=== PATIENT | male | born 1940 | race Caucasian/White ===

== ENCOUNTER → 2017-06-05 | Outpatient (CLI) | payer MEDICARE | END | disposition home or self-care (01) | LOC: CFH 10:13 | PROVIDERS: ATTEND Physician Assistant | DX: M47.892 Other spondylosis, cervical region (principal); M50.21 Other cervical disc displacement, high cervical region; M47.894 Other spondylosis, thoracic region; M85.88 Other specified disorders of bone density and structure, other site; M25.78 Osteophyte, vertebrae; M48.02 Spinal stenosis, cervical region | CPT/HCPCS: 72050; 72072; 72125 ==

== ENCOUNTER 2018-12-07 16:06 | Emergency (ER) | payer MEDICARE ==
[~2018-12-07] VITALS: Ht 177.8 cm; Wt 104.0 kg
[2018-12-07 16:43] LABS: BASOPHILS # (AUTO) 0.08 x10^3/uL (0-0.1); BASOPHILS % (AUTO) 1 % (0-1); EOSINOPHILS # (AUTO) 0.19 x10^3/uL (0-0.4); EOSINOPHILS % (AUTO) 3 % (1-7); LYMPHOCYTES # (AUTO) 1.25 x10^3/uL (1-3.4); LYMPHOCYTES % (AUTO) 19 % (22-44); MD NO; MEAN CORPUSCULAR HEMOGLOBIN 31.2 pg (27.5-34.5); MEAN CORPUSCULAR HGB CONC 33.7 g/dL (33.2-36.2); MEAN CORPUSCULAR VOLUME 92.7 fL (81-97); MEAN PLATELET VOLUME 8.3 fL (7.4-10.4); MONOCYTES # (AUTO) 0.67 x10^3/uL (0.2-0.8); MONOCYTES % (AUTO) 10 % (2-9); NEUTROPHILS % (AUTO) 67 % (42-75); PLATELET COUNT 212 x10^3/uL (130-400); RED BLOOD COUNT 5.25 x10^6/uL (4.38-5.82); RED CELL DISTRIBUTION WIDTH 14.3 % (9.4-14.8)
[2018-12-07 16:52] LABS: ALBUMIN 4.2 g/dL (3.4-5.0); ANION GAP 7 mmol/L (5-15); CALCIUM 8.9 mg/dL (8.5-10.1); CHLORIDE 106 mmol/L (98-107); CREATININE 1.43 mg/dL (0.7-1.3)
[2018-12-07] MEDS ORDERED: LOSA100T14 PO (17:07)
[2018-12-07] MEDS ORDERED: AMLO10TA8 PO (17:07)
[2018-12-07] MEDS ORDERED: UMEC1DIS IH (17:07)
[2018-12-07] MEDS ORDERED: SERT50TA28 PO (17:07)
[2018-12-07] MEDS ORDERED: OMEP-110 PO (17:07)
[2018-12-07] MEDS ORDERED: TRAM50TA2 PO (17:07)
[2018-12-07] MEDS ORDERED: DICL25TA PO (17:07)
[2018-12-07] MEDS ORDERED: ATOR-2 PO (17:07)
[2018-12-07] MEDS ORDERED: FINA5TAB4 PO (17:07)
[2018-12-07] MEDS ORDERED: MONT10TA9 PO (17:15)
[2018-12-07] MEDS ORDERED: GUAI400T66 PO (17:15)
[2018-12-07] MEDS ORDERED: ASPI-496 PO (17:15)
[2018-12-07] MEDS ORDERED: ASCO500W4 PEG (17:15)
[2018-12-07] MEDS ORDERED: CALC-545 PO (17:15)
[2018-12-07] MEDS ORDERED: CHOL200074 PO (17:15)
[2018-12-07] MEDS ORDERED: MULT-658 PO (17:15)
[2018-12-07] MEDS ORDERED: OMEG-123 PO (17:15)
--- NOTE | 2018-12-07 17:16 | NUR ---
Patient resting in gurney with his son at bedside, plan of care discussed by Dr. Shankar, patient verbalizes understanding. Continuous blood pressure, SPO2 and cardiac monitoring in place. Call powell within reach. Patient does not appear to be in acute distress at this time. Labs pending.
[2018-12-07 17:42] LABS: TROPONIN I < 0.015 ng/mL (0.000-0.045)
[2018-12-07 18:40] VITALS: BP 143/81
== END 2018-12-07 18:42 | disposition home or self-care (01) ==
LOC: ED 18:36
DX: I49.3 Ventricular premature depolarization (principal); Z95.0 Presence of cardiac pacemaker
CPT/HCPCS: 36415; 71045; 80048; 82040; 84484; 85025; 93005; 99284

== ENCOUNTER 2019-09-27 12:51 | Inpatient (IN) | payer MEDICARE ==
[~2019-09-27] VITALS: Ht 185.4 cm; Wt 97.7 kg
[~2019-09-27 12:51] MED LIST: AMLO10TA8 PO; ASCO500W4 PEG; ASPI-496 PO; ATOR-2 PO; CALC-545 PO; CHOL200074 PO; DICL25TA PO; FINA5TAB4 PO; GUAI400T81 PO; LOSA100T14 PO; MONT10TA11 PO; MULT-658 PO; OMEG-123 PO; OMEP-110 PO; SERT50TA28 PO; TRAM50TA2 PO; UMEC1DIS IH
[2019-09-27] MEDS ORDERED: HYDROmorphone 2 MG/ML, 1ML IVPush PRN (13:00)
[2019-09-27] MEDS ORDERED: SODIUM CHLORIDE FLUSH 10ML SYR IVF ONE (13:00)
[2019-09-27] MEDS ORDERED: HYDROmorphone 1 MG/ML, 1ML INJ ONE (13:05)
[2019-09-27 13:32] LABS: BASOPHILS # (AUTO) 0.02 x10^3/uL (0-0.1); BASOPHILS % (AUTO) 0 % (0-1); EOSINOPHILS # (AUTO) 0.11 x10^3/uL (0-0.4); EOSINOPHILS % (AUTO) 2 % (1-7); LYMPHOCYTES # (AUTO) 0.74 x10^3/uL (1-3.4); LYMPHOCYTES % (AUTO) 11 % (22-44); MD NO; MEAN CORPUSCULAR HEMOGLOBIN 31.5 pg (27.5-34.5); MEAN CORPUSCULAR HGB CONC 33.8 g/dL (33.2-36.2); MEAN CORPUSCULAR VOLUME 93.1 fL (81-97); MEAN PLATELET VOLUME 7.5 fL (7.4-10.4); MONOCYTES # (AUTO) 0.84 x10^3/uL (0.2-0.8); MONOCYTES % (AUTO) 13 % (2-9); NEUTROPHILS # (AUTO) 4.75 x10^3/uL (1.8-6.8); NEUTROPHILS % (AUTO) 74 % (42-75); PLATELET COUNT 245 x10^3/uL (130-400); RED BLOOD COUNT 4.94 x10^6/uL (4.38-5.82); RED CELL DISTRIBUTION WIDTH 14.8 % (9.4-14.8)
--- NOTE | 2019-09-27 13:39 | NUR ---
biba to ed from home. R hip pain x2 months. atraumatic. appt w/ specialist on 10/15 but cannot wait. worse this week, unable to leave bed x6 days helps him. +DPs. pain on movement. tramadol at home for pain. A&Ox4 gcs 15 paced vss no bruising/deformity noted. Pt to XR/labs drawn and sent/meds per mar with improvemnt. call powell/fall precautions. as
[2019-09-27 13:40] LABS: ALANINE AMINOTRANSFERASE 38 U/L (12-78); ALBUMIN 3.2 g/dL (3.4-5.0); ANION GAP 6 mmol/L (5-15); CALCIUM 8.5 mg/dL (8.5-10.1); CHLORIDE 106 mmol/L (98-107)
[2019-09-27 13:43] LABS: ALKALINE PHOSPHATASE 122 U/L (45-117); BILIRUBIN,TOTAL 1.3 mg/dL (0.2-1.0); TOTAL PROTEIN 7.3 g/dL (6.4-8.2)
--- NOTE | 2019-09-27 13:51 | NUR ---
Bedside report received from ASHWIN Rush. Plan of care discussed. Pt educated on need for urine sample
--- NOTE | 2019-09-27 13:53 | NUR ---
report to azeb che. as
[2019-09-27 14:50] LABS: MICROSCOPIC INDICATED
--- NOTE | 2019-09-27 15:00 | NUR ---
PATIENT PLACED ON 3L NC DUE TO DESAT AT 88% ON RA. PATIENT HAS HX COPD. MRI SCREENING QUESTIONS COMPLETED AND FAXED TO MRI
[2019-09-27] MEDS ORDERED: FLUT1DIS IH (15:11)
[2019-09-27] MEDS ORDERED: ALBU18HF INH (15:12)
[2019-09-27] MEDS ORDERED: SERT100T32 PO (15:17)
[2019-09-27] MEDS ORDERED: TRAM50TA2 PO (15:18)
--- NOTE | 2019-09-27 15:37 | NUR ---
REPORT GIVEN TO ASHWIN ALMONTE. PLAN OF CARE DISCUSSED.
[2019-09-27] MEDS ORDERED: LABETALOL 5MG/ML, 20ML IVPush PRN (16:30)
[2019-09-27] MEDS ORDERED: ONDANSETRON 2MG/ML, 2ML IVPush PRN (16:30)
[2019-09-27] MEDS ORDERED: morphine SULFATE 10 MG/ML, 1ML IVPush PRN (16:30)
[2019-09-27] MEDS ORDERED: ENOXAPARIN 40 MG/0.4 ML SQ SCH (16:30)
[2019-09-27] MEDS ORDERED: [UNRECOGNIZED DRUG - REMARK] INH PRN (16:30)
[2019-09-27] MEDS ORDERED: DOCUSATE 100 MG CAPSULE PO PRN (16:30)
[2019-09-27] MEDS: ACETAMINOPHEN 325 MG TABLET PO SCH ×2 (16:55→20:50)
[2019-09-27] MEDS: OXYcodone IR 5MG TABLET PO PRN ×3 (16:56→23:15)
[2019-09-27] MEDS ORDERED: ALBUTEROL SULFATE 2.5 MG/3 ML NPPB PRN (18:00)
[2019-09-27 19:18] VITALS: BP 137/83
[2019-09-27] MEDS: GABAPENTIN 100 MG CAPSULE PO SCH (20:50)
[2019-09-27] MEDS: SERTRALINE 100MG TABLET PO SCH (20:50)
[2019-09-27] MEDS: ATORVASTATIN 80 MG TABLET PO SCH (20:51)
[2019-09-27] MEDS: LOSARTAN 25MG TABLET PO SCH (20:51)
[2019-09-27] MEDS: SODIUM CHLORIDE 0.9% 1,000 ML IV SCH (23:16)
[2019-09-28 00:21] VITALS: BP 133/72
[2019-09-28 05:55] LABS: BASOPHILS # (AUTO) 0.03 x10^3/uL (0-0.1); BASOPHILS % (AUTO) 1 % (0-1); EOSINOPHILS # (AUTO) 0.21 x10^3/uL (0-0.4); EOSINOPHILS % (AUTO) 4 % (1-7); LYMPHOCYTES # (AUTO) 0.83 x10^3/uL (1-3.4); LYMPHOCYTES % (AUTO) 16 % (22-44); MD NO; MEAN CORPUSCULAR HEMOGLOBIN 31.2 pg (27.5-34.5); MEAN CORPUSCULAR HGB CONC 32.8 g/dL (33.2-36.2); MEAN CORPUSCULAR VOLUME 94.9 fL (81-97); MEAN PLATELET VOLUME 7.5 fL (7.4-10.4); MONOCYTES # (AUTO) 0.73 x10^3/uL (0.2-0.8); MONOCYTES % (AUTO) 14 % (2-9); NEUTROPHILS # (AUTO) 3.28 x10^3/uL (1.8-6.8); NEUTROPHILS % (AUTO) 65 % (42-75); PLATELET COUNT 227 x10^3/uL (130-400); RED BLOOD COUNT 4.72 x10^6/uL (4.38-5.82); RED CELL DISTRIBUTION WIDTH 14.4 % (9.4-14.8)
[2019-09-28] MEDS: OXYcodone IR 5MG TABLET PO PRN ×4 (05:58→20:01)
[2019-09-28 06:02] LABS: ANION GAP 6 mmol/L (5-15); CALCIUM 8.3 mg/dL (8.5-10.1); CHLORIDE 110 mmol/L (98-107); CREATININE 0.87 mg/dL (0.7-1.3)
[2019-09-28 07:15] VITALS: BP 143/83
[2019-09-28] MEDS: MONTELUKAST 10 MG TABLET PO SCH (08:45)
[2019-09-28] MEDS: LOSARTAN 25MG TABLET PO SCH ×2 (08:45→20:01)
[2019-09-28] MEDS: ACETAMINOPHEN 325 MG TABLET PO SCH ×3 (08:45→20:00)
[2019-09-28] MEDS: MULTIVITAMIN 1 TABLET PO SCH (08:45)
[2019-09-28] MEDS: SERTRALINE 100MG TABLET PO SCH ×2 (08:45→20:01)
[2019-09-28] MEDS: OMEPRAZOLE 20 MG CAPSULE.DR PO SCH (08:45)
[2019-09-28] MEDS: GABAPENTIN 100 MG CAPSULE PO SCH ×2 (08:45→20:00)
[2019-09-28] MEDS: [UNRECOGNIZED DRUG - REMARK] HOMEINH SCH (08:46)
[2019-09-28] MEDS: ASPIRIN 81 MG TABLET EC PO SCH (08:46)
[2019-09-28] MEDS: [UNRECOGNIZED DRUG - REMARK] HOMEINH SCH ×2 (08:46→12:47)
[2019-09-28] MEDS: FINASTERIDE 5 MG TABLET PO SCH (08:49)
[2019-09-28] MEDS ORDERED: AMLODIPINE 10 MG TAB PO SCH (09:00)
[2019-09-28] MEDS ORDERED: [UNRECOGNIZED DRUG - REMARK] HOMEINH SCH (09:00)
[2019-09-28] MEDS ORDERED: [UNRECOGNIZED DRUG - REMARK] HOMEINH SCH (09:00)
[2019-09-28] MEDS ORDERED: LOSARTAN 25MG TABLET PO SCH (09:00)
[2019-09-28] MEDS: SODIUM CHLORIDE 0.9% 1,000 ML IV SCH (12:44)
[2019-09-28 14:52] VITALS: BP 150/89
[2019-09-28] MEDS: ATORVASTATIN 80 MG TABLET PO SCH (20:01)
[2019-09-28 20:40] VITALS: BP 147/82
[2019-09-29 01:47] VITALS: BP 126/73
[2019-09-29] MEDS: OXYcodone IR 5MG TABLET PO PRN ×4 (05:52→19:52)
[2019-09-29 06:57] VITALS: BP_SYST 175; BP_SYST 182; BP_DIAS 102; BP_DIAS 107
[2019-09-29] MEDS: MONTELUKAST 10 MG TABLET PO SCH (08:19)
[2019-09-29] MEDS: ACETAMINOPHEN 325 MG TABLET PO SCH ×2 (08:19→17:15)
[2019-09-29] MEDS: OMEPRAZOLE 20 MG CAPSULE.DR PO SCH (08:19)
[2019-09-29] MEDS: MULTIVITAMIN 1 TABLET PO SCH (08:19)
[2019-09-29] MEDS: GABAPENTIN 100 MG CAPSULE PO SCH ×2 (08:19→19:52)
[2019-09-29] MEDS: ASPIRIN 81 MG TABLET EC PO SCH (08:19)
[2019-09-29] MEDS: LOSARTAN 25MG TABLET PO SCH ×2 (08:19→19:52)
[2019-09-29] MEDS: SERTRALINE 100MG TABLET PO SCH ×2 (08:20→19:52)
[2019-09-29 08:26] VITALS: BP 155/83
[2019-09-29] MEDS: FINASTERIDE 5 MG TABLET PO SCH (08:52)
[2019-09-29] MEDS ORDERED: POLYETHYLENE GLYCOL 17 GM PACKET PO PRN (09:30)
[2019-09-29] MEDS: [UNRECOGNIZED DRUG - REMARK] HOMEINH SCH (10:48)
[2019-09-29] MEDS: PSYLLIUM PACKET PO SCH (10:48)
[2019-09-29 12:45] VITALS: BP 141/80
[2019-09-29] MEDS: ATORVASTATIN 80 MG TABLET PO SCH (19:53)
[2019-09-29 20:52] VITALS: BP 153/89
[2019-09-30] MEDS: ACETAMINOPHEN 325 MG TABLET PO SCH ×5 (01:09→22:52)
[2019-09-30] MEDS: OXYcodone IR 5MG TABLET PO PRN ×3 (01:09→14:05)
[2019-09-30 02:25] VITALS: BP 174/97
[2019-09-30 03:27] VITALS: BP 167/93
[2019-09-30 06:54] LABS: BASOPHILS # (AUTO) 0.03 x10^3/uL (0-0.1); BASOPHILS % (AUTO) 1 % (0-1); EOSINOPHILS # (AUTO) 0.37 x10^3/uL (0-0.4); EOSINOPHILS % (AUTO) 6 % (1-7); LYMPHOCYTES # (AUTO) 1.12 x10^3/uL (1-3.4); LYMPHOCYTES % (AUTO) 19 % (22-44); MD NO; MEAN CORPUSCULAR HGB CONC 32.7 g/dL (33.2-36.2); MEAN CORPUSCULAR VOLUME 94.8 fL (81-97); MEAN PLATELET VOLUME 7.6 fL (7.4-10.4); MONOCYTES # (AUTO) 0.71 x10^3/uL (0.2-0.8); MONOCYTES % (AUTO) 12 % (2-9); NEUTROPHILS # (AUTO) 3.55 x10^3/uL (1.8-6.8); NEUTROPHILS % (AUTO) 62 % (42-75); PLATELET COUNT 247 x10^3/uL (130-400); RED BLOOD COUNT 4.99 x10^6/uL (4.38-5.82); RED CELL DISTRIBUTION WIDTH 14.1 % (9.4-14.8)
[2019-09-30 07:03] VITALS: BP 190/103
[2019-09-30 07:04] LABS: ANION GAP 3 mmol/L (5-15); CHLORIDE 106 mmol/L (98-107)
[2019-09-30 07:06] LABS: CREATININE 0.88 mg/dL (0.7-1.3)
[2019-09-30] MEDS: LOSARTAN 25MG TABLET PO SCH ×2 (07:47→21:08)
[2019-09-30] MEDS: MULTIVITAMIN 1 TABLET PO SCH (07:47)
[2019-09-30] MEDS: MONTELUKAST 10 MG TABLET PO SCH (07:47)
[2019-09-30] MEDS: SERTRALINE 100MG TABLET PO SCH ×2 (07:47→21:36)
[2019-09-30] MEDS: GABAPENTIN 100 MG CAPSULE PO SCH ×2 (07:47→21:09)
[2019-09-30] MEDS: ASPIRIN 81 MG TABLET EC PO SCH (07:47)
[2019-09-30] MEDS: PSYLLIUM PACKET PO SCH (07:48)
[2019-09-30] MEDS: [UNRECOGNIZED DRUG - REMARK] HOMEINH SCH (07:48)
[2019-09-30] MEDS: OMEPRAZOLE 20 MG CAPSULE.DR PO SCH (07:48)
[2019-09-30] MEDS: [UNRECOGNIZED DRUG - REMARK] HOMEINH SCH (07:48)
[2019-09-30 07:50] VITALS: BP 193/97
[2019-09-30] MEDS ORDERED: hydrALAzine 20 MG/ML, 1ML IV PRN ×2 (08:00→15:00)
[2019-09-30 08:18] VITALS: BP 182/97
[2019-09-30] MEDS: FINASTERIDE 5 MG TABLET PO SCH (09:26)
[2019-09-30] MEDS: AMLODIPINE 5 MG TABLET PO SCH ×2 (11:30→21:09)
[2019-09-30 12:54] VITALS: BP 134/71
[2019-09-30] MEDS ORDERED: KETOROLAC 60 MG/2 ML ONE (14:40)
[2019-09-30] MEDS ORDERED: EPINEPHRINE 1 MG/ML, 1ML ONE (14:41)
[2019-09-30] MEDS ORDERED: TRANEXAMIC ACID 100 MG/ML, 10ML ONE ×3 (14:41→14:42)
[2019-09-30] MEDS ORDERED: SODIUM CHLORIDE 0.9% 50 ML ONE (14:41)
[2019-09-30] MEDS ORDERED: ROPIvacaine/PF 0.2%, 20 ML ONE (14:41)
[2019-09-30] MEDS ORDERED: FENTANYL PF 250 MCG/5ML ONE (14:45)
[2019-09-30] MEDS ORDERED: DEXAMETHASONE 4 MG/ML, 1ML ONE (14:48)
[2019-09-30] MEDS ORDERED: CEFAZOLIN 1,000 MG ONE (14:48)
[2019-09-30] MEDS ORDERED: ONDANSETRON 2MG/ML, 2ML ONE (14:48)
[2019-09-30] MEDS ORDERED: PROPOFOL 10 MG/ML, 20ML ONE ×2 (14:48→15:34)
[2019-09-30] MEDS ORDERED: SUCCINYLCHOLINE 20 MG/ML, 10ML ONE (14:48)
[2019-09-30] MEDS ORDERED: ONDANSETRON 2MG/ML, 2ML IV PRN (15:00)
[2019-09-30] MEDS ORDERED: ACETAMINOPHEN 325 MG TABLET PO PRN (15:00)
[2019-09-30] MEDS ORDERED: LABETALOL 5MG/ML, 20ML IV PRN (15:00)
[2019-09-30] MEDS ORDERED: MEPERIDINE/PF 25MG/ML,1ML IVPush PRN (15:00)
[2019-09-30] MEDS ORDERED: FENTANYL PF 100 MCG/2ML IV PRN (15:00)
[2019-09-30] MEDS ORDERED: OXYcodone 5 MG/5 ML ORAL.SOL UDC PO PRN (15:00)
[2019-09-30] MEDS ORDERED: PROMETHAZINE 25 MG/ML, 1ML IV PRN (15:00)
[2019-09-30] MEDS ORDERED: HYDROmorphone 2 MG/ML, 1ML IVPush PRN ×2 (15:00→22:00)
[2019-09-30] MEDS ORDERED: PHENYLEPHRINE 10 MG/ML ONE (15:34)
[2019-09-30] MEDS ORDERED: LIDOCAINE 2% 100MG/5ML SYRINGE ONE (15:34)
[2019-09-30] MEDS ORDERED: AMIODARONE 50 MG/ML, 3ML IVPush STA (16:11)
[2019-09-30] MEDS ORDERED: ALBUTEROL HFA 90 MCG/SPRAY ONE (16:44)
[2019-09-30] MEDS ORDERED: BISACODYL 10 MG SUPP PR PRN ×2 (17:00→22:00)
[2019-09-30] MEDS ORDERED: EPHEDRINE 50 MG/ML, 1ML ONE (17:28)
[2019-09-30] MEDS: EPHEDRINE 50 MG/ML, 1ML IVPush PRN ×2 (17:30→18:06)
[2019-09-30] MEDS ORDERED: ALBUMIN HUMAN 5% 500 ML ONE (18:07)
[2019-09-30] MEDS ORDERED: ALBUMIN HUMAN 5% 500 ML IV STA (18:07)
[2019-09-30] MEDS ORDERED: INSULIN SINGLE DOSE, ER ONE (18:12)
[2019-09-30 18:37] LABS: HEMOGLOBIN BY BLOOD GAS ANALYZ 14.3 g/dL (14.0-18.0)
[2019-09-30 20:13] LABS: ANION GAP 5 mmol/L (5-15); CALCIUM 8.6 mg/dL (8.5-10.1); CHLORIDE 109 mmol/L (98-107); CREATININE 1.05 mg/dL (0.7-1.3)
[2019-09-30 20:24] LABS: TROPONIN I 0.061 ng/mL (0.000-0.045)
[2019-09-30] MEDS ORDERED: DEXMEDETOMIDINE 200 MCG in SODIUM CHLORIDE 0.9% 48 ML IV PRN (20:30)
[2019-09-30] MEDS: ATORVASTATIN 80 MG TABLET PO SCH (21:09)
[2019-09-30] MEDS ORDERED: OXYcodone/APAP 10/325MG TABLET PO PRN (22:00)
[2019-09-30] MEDS ORDERED: ALUMINUM/MAG/SIMETHICONE 30 ML UDC PO PRN (22:00)
[2019-09-30] MEDS ORDERED: HYDROcodone/APAP 5/325 TABLET PO PRN (22:00)
[2019-09-30] MEDS ORDERED: OXYcodone/APAP 5/325MG TABLET PO PRN (22:00)
[2019-09-30] MEDS ORDERED: DIPHENHYDRAMINE 25 MG CAPSULE PO PRN (22:00)
[2019-09-30] MEDS ORDERED: ONDANSETRON ODT 4 MG PO PRN (22:00)
[2019-09-30] MEDS ORDERED: D5%-LACTATED RINGERS 1,000 ML IV SCH (22:00)
[2019-09-30] MEDS ORDERED: POLYETHYLENE GLYCOL 17 GM PACKET PO PRN (22:00)
[2019-09-30] MEDS ORDERED: SENNA/DOCUSATE TABLET PO PRN (22:00)
[2019-09-30] MEDS ORDERED: MAGNESIUM HYDROXIDE 8%, 30ML UDC PO PRN (22:00)
[2019-09-30] MEDS ORDERED: ONDANSETRON 2MG/ML, 2ML IVPush PRN (22:00)
[2019-09-30] MEDS: CEFAZOLIN PMX 2GM/50ML 50 ML IVPB SCH (23:14)
[2019-10-01 02:24] LABS: BASOPHILS # (AUTO) 0.01 x10^3/uL (0-0.1); BASOPHILS % (AUTO) 0 % (0-1); EOSINOPHILS # (AUTO) 0.13 x10^3/uL (0-0.4); EOSINOPHILS % (AUTO) 2 % (1-7); LYMPHOCYTES # (AUTO) 0.62 x10^3/uL (1-3.4); LYMPHOCYTES % (AUTO) 10 % (22-44); MD NO; MEAN CORPUSCULAR HEMOGLOBIN 30.7 pg (27.5-34.5); MEAN CORPUSCULAR HGB CONC 32.8 g/dL (33.2-36.2); MEAN CORPUSCULAR VOLUME 93.8 fL (81-97); MEAN PLATELET VOLUME 7.3 fL (7.4-10.4); MONOCYTES # (AUTO) 0.61 x10^3/uL (0.2-0.8); MONOCYTES % (AUTO) 10 % (2-9); NEUTROPHILS # (AUTO) 4.74 x10^3/uL (1.8-6.8); NEUTROPHILS % (AUTO) 78 % (42-75); PLATELET COUNT 210 x10^3/uL (130-400); RED BLOOD COUNT 3.98 x10^6/uL (4.38-5.82); RED CELL DISTRIBUTION WIDTH 14.4 % (9.4-14.8); TROPONIN I 0.081 ng/mL (0.000-0.045)
[2019-10-01 02:32] LABS: ALBUMIN 2.9 g/dL (3.4-5.0); ANION GAP 6 mmol/L (5-15); CALCIUM 8.1 mg/dL (8.5-10.1); CHLORIDE 108 mmol/L (98-107); CREATININE 1.07 mg/dL (0.7-1.3)
[2019-10-01] MEDS ORDERED: SODIUM CHLORIDE 0.9% 1,000 ML IV SCH (03:30)
[2019-10-01] MEDS: ACETAMINOPHEN 325 MG TABLET PO SCH ×4 (04:16→23:35)
[2019-10-01 05:00] VITALS: BP 120/70
[2019-10-01] MEDS: ASPIRIN 81 MG TABLET EC PO SCH ×2 (05:18→17:31)
[2019-10-01] MEDS: CEFAZOLIN PMX 2GM/50ML 50 ML IVPB SCH (06:44)
[2019-10-01 08:05] LABS: TROPONIN I 0.056 ng/mL (0.000-0.045)
[2019-10-01] MEDS: PSYLLIUM PACKET PO SCH (08:32)
[2019-10-01] MEDS: AMLODIPINE 5 MG TABLET PO SCH ×2 (08:33→20:32)
[2019-10-01] MEDS: DOCUSATE 100 MG CAPSULE PO SCH ×2 (08:33→20:31)
[2019-10-01] MEDS: SERTRALINE 100MG TABLET PO SCH ×2 (08:33→20:32)
[2019-10-01] MEDS: OMEPRAZOLE 20 MG CAPSULE.DR PO SCH (08:33)
[2019-10-01] MEDS: MULTIVITAMIN 1 TABLET PO SCH (08:33)
[2019-10-01] MEDS: GABAPENTIN 100 MG CAPSULE PO SCH ×2 (08:33→20:32)
[2019-10-01] MEDS: SODIUM CHLORIDE FLUSH 10ML SYR IVF SCH ×2 (08:34→19:39)
[2019-10-01] MEDS: MONTELUKAST 10 MG TABLET PO SCH (08:34)
[2019-10-01] MEDS: LOSARTAN 25MG TABLET PO SCH ×2 (08:34→20:32)
[2019-10-01] MEDS: FINASTERIDE 5 MG TABLET PO SCH (08:34)
[2019-10-01] MEDS: [UNRECOGNIZED DRUG - REMARK] HOMEINH SCH (08:35)
[2019-10-01] MEDS: [UNRECOGNIZED DRUG - REMARK] HOMEINH SCH (08:35)
[2019-10-01] MEDS: ENOXAPARIN 40 MG/0.4 ML SQ SCH (10:29)
[2019-10-01 13:22] VITALS: BP 144/58
[2019-10-01] MEDS: OXYcodone IR 5MG TABLET PO PRN (15:17)
[2019-10-01 15:38] VITALS: BP 130/72
[2019-10-01 20:03] VITALS: BP 148/86
[2019-10-01] MEDS: ATORVASTATIN 80 MG TABLET PO SCH (20:32)
[2019-10-02 02:31] VITALS: BP 156/82
[2019-10-02] MEDS: OXYcodone IR 5MG TABLET PO PRN ×2 (02:35→10:32)
[2019-10-02 06:04] LABS: ANION GAP 3 mmol/L (5-15); CALCIUM 8.6 mg/dL (8.5-10.1); CHLORIDE 108 mmol/L (98-107); CREATININE 0.78 mg/dL (0.7-1.3)
[2019-10-02] MEDS: ACETAMINOPHEN 325 MG TABLET PO SCH ×4 (06:23→22:04)
[2019-10-02] MEDS: ASPIRIN 81 MG TABLET EC PO SCH ×2 (06:23→17:49)
[2019-10-02 08:09] VITALS: BP 136/76
[2019-10-02] MEDS: GABAPENTIN 100 MG CAPSULE PO SCH ×2 (08:38→20:12)
[2019-10-02] MEDS: FINASTERIDE 5 MG TABLET PO SCH (08:38)
[2019-10-02] MEDS: AMLODIPINE 5 MG TABLET PO SCH ×2 (08:38→20:12)
[2019-10-02] MEDS: LOSARTAN 25MG TABLET PO SCH ×2 (08:39→20:12)
[2019-10-02] MEDS: MONTELUKAST 10 MG TABLET PO SCH (08:39)
[2019-10-02] MEDS: MULTIVITAMIN 1 TABLET PO SCH (08:39)
[2019-10-02] MEDS: OMEPRAZOLE 20 MG CAPSULE.DR PO SCH (08:39)
[2019-10-02] MEDS: SERTRALINE 100MG TABLET PO SCH ×2 (08:39→20:12)
[2019-10-02] MEDS: PSYLLIUM PACKET PO SCH (08:41)
[2019-10-02] MEDS: DOCUSATE 100 MG CAPSULE PO SCH ×2 (08:41→20:12)
[2019-10-02] MEDS: ENOXAPARIN 40 MG/0.4 ML SQ SCH (10:31)
[2019-10-02] MEDS: [UNRECOGNIZED DRUG - REMARK] HOMEINH SCH (10:32)
[2019-10-02] MEDS: [UNRECOGNIZED DRUG - REMARK] HOMEINH SCH (10:32)
[2019-10-02] MEDS: SODIUM CHLORIDE FLUSH 10ML SYR IVF SCH ×2 (10:32→20:13)
[2019-10-02 15:59] VITALS: BP 103/52
[2019-10-02 18:51] VITALS: BP 112/72
[2019-10-02] MEDS: ATORVASTATIN 80 MG TABLET PO SCH (20:12)
[2019-10-03 02:00] VITALS: BP 137/74
[2019-10-03] MEDS: OXYcodone IR 5MG TABLET PO PRN ×2 (02:55→15:26)
[2019-10-03] MEDS: ACETAMINOPHEN 325 MG TABLET PO SCH ×2 (05:07→10:10)
[2019-10-03] MEDS: ASPIRIN 81 MG TABLET EC PO SCH (05:59)
[2019-10-03 07:44] VITALS: BP 137/64
[2019-10-03] MEDS: AMLODIPINE 5 MG TABLET PO SCH (09:02)
[2019-10-03] MEDS: SERTRALINE 100MG TABLET PO SCH (09:03)
[2019-10-03] MEDS: LOSARTAN 25MG TABLET PO SCH (09:03)
[2019-10-03] MEDS: [UNRECOGNIZED DRUG - REMARK] HOMEINH SCH (09:03)
[2019-10-03] MEDS: FINASTERIDE 5 MG TABLET PO SCH (09:03)
[2019-10-03] MEDS: MONTELUKAST 10 MG TABLET PO SCH (09:03)
[2019-10-03] MEDS: DOCUSATE 100 MG CAPSULE PO SCH (09:03)
[2019-10-03] MEDS: [UNRECOGNIZED DRUG - REMARK] HOMEINH SCH (09:03)
[2019-10-03] MEDS: MULTIVITAMIN 1 TABLET PO SCH (09:03)
[2019-10-03] MEDS: SODIUM CHLORIDE FLUSH 10ML SYR IVF SCH (09:03)
[2019-10-03] MEDS: GABAPENTIN 100 MG CAPSULE PO SCH (09:03)
[2019-10-03] MEDS: OMEPRAZOLE 20 MG CAPSULE.DR PO SCH (09:03)
[2019-10-03] MEDS: PSYLLIUM PACKET PO SCH (09:04)
[2019-10-03] MEDS: ENOXAPARIN 40 MG/0.4 ML SQ SCH (10:10)
[2019-10-03] MEDS ORDERED: GUAIFENESIN 100 MG/5 ML, 10ML UDC PO PRN (10:30)
[2019-10-03] MEDS ORDERED: DOCU100C33 PO (10:32)
[2019-10-03] MEDS ORDERED: ENOX40SY4 SQ (10:32)
[2019-10-03] MEDS ORDERED: GUAI100L11 PO (10:32)
[2019-10-03] MEDS ORDERED: ACET325T26 PO (10:32)
[2019-10-03] MEDS ORDERED: OXYC5TAB3 PO ×2 (10:37→13:19)
[2019-10-03 14:05] VITALS: BP 124/78
== END 2019-10-03 15:34 | DRG 469 ==
LOC: ED 15:35 → EDIP 15:40 → 4NE 16:10 → ICU 09-30 18:50 → 4NE 10-01 15:27
PROVIDERS: ADMIT Internal Medicine; ATTEND Hospitalist
PROC: 4B02XSZ Measurement of Cardiac Pacemaker, External Approach (ICD-10-PCS; 2019-09-30)
PROC: 0SR902A Replacement of Right Hip Joint with Metal on Polyethylene Synthetic Substitute, Uncemented, Open Approach (ICD-10-PCS; principal; 2019-09-30 15:30)
DX: M16.11 Unilateral primary osteoarthritis, right hip (principal); J96.21 Acute and chronic respiratory failure with hypoxia; M87.851 Other osteonecrosis, right femur; M87.9 Osteonecrosis, unspecified; J44.9 Chronic obstructive pulmonary disease, unspecified; I11.9 Hypertensive heart disease without heart failure; I95.9 Hypotension, unspecified; M81.0 Age-related osteoporosis without current pathological fracture; M47.816 Spondylosis without myelopathy or radiculopathy, lumbar region; D64.9 Anemia, unspecified; E78.5 Hyperlipidemia, unspecified; F32.9 Major depressive disorder, single episode, unspecified; F10.20 Alcohol dependence, uncomplicated; F12.20 Cannabis dependence, uncomplicated; N40.0 Benign prostatic hyperplasia without lower urinary tract symptoms; Z66 Do not resuscitate; Z87.891 Personal history of nicotine dependence; Z95.0 Presence of cardiac pacemaker
CPT/HCPCS: 36415; 71045; 72170; 72190; 80048; 80053; 81001; 82040; 82306; 82533; 82803; 83735; 83880; 84484; 85014; 85018; 85025; 87081; 93005; 99283; C1713; G0378; J0171; J0690; J1100; J1170; J1650; J1885; J2405; J2704; J2795; J3010; P9045; C1776; J0330; J1815; J2370; J7030

== ENCOUNTER → 2020-05-19 | Outpatient (CLI) | payer MEDICARE ==
[~2020-05-19] MED LIST changes: +ACET325T26 PO; +ALBU18HF INH; +DOCU100C33 PO; +ENOX40SY4 SQ; +FLUT1DIS IH; +GUAI100L11 PO; +OXYC5TAB3 PO; +SERT100T32 PO
[2020-05-19 15:07] LABS: ANION GAP 4 mmol/L (5-15); CALCIUM 9.1 mg/dL (8.5-10.1); CHLORIDE 105 mmol/L (98-107); CREATININE 1.36 mg/dL (0.7-1.3)
== END | disposition home or self-care (01) ==
LOC: STAR 14:21
PROVIDERS: ATTEND Anesthesiology
DX: Z01.818 Encounter for other preprocedural examination (principal); I44.0 Atrioventricular block, first degree; I44.4 Left anterior fascicular block
CPT/HCPCS: 36415; 80048; 93005

== ENCOUNTER 2020-12-09 10:11 | Day surgery (SDC) | payer MEDICARE ==
[~2020-12-09] VITALS: Ht 185.4 cm; Wt 100.8 kg
[~2020-12-09 10:11] MED LIST changes: +AMLO-211 PO; -AMLO10TA8 PO; -CALC-545 PO; +CALC-780 PO; -MONT10TA11 PO; +MONT10TA17 PO; -OXYC5TAB3 PO; +OXYC5TAB98 PO
[2020-12-09] MEDS ORDERED: GUAI400T81 PO (10:54)
[2020-12-09] MEDS ORDERED: CHOL10003 PO (10:54)
[2020-12-09] MEDS ORDERED: OMEP-110 PO (10:54)
[2020-12-09] MEDS ORDERED: FLUT200B INH (10:54)
[2020-12-09] MEDS ORDERED: ASCO500T8 PO (10:54)
[2020-12-09] MEDS ORDERED: FLUT9.9S INH (10:54)
[2020-12-09] MEDS ORDERED: UMEC1DIS INH (10:54)
[2020-12-09] MEDS ORDERED: AMLO-210 PO (10:54)
[2020-12-09] MEDS ORDERED: PLEASE ENTER HEIGHT AND WEIGHT MC SCH (11:00)
[2020-12-09] MEDS ORDERED: SODIUM CHLORIDE 0.9% 1,000 ML IV SCH (11:00)
[2020-12-09 11:19] VITALS: BP 138/80
[2020-12-09 11:29] LABS: BASOPHILS % (AUTO) 1 % (0-1); EOSINOPHILS % (AUTO) 2 % (1-7); LYMPHOCYTES % (AUTO) 14 % (22-44); MEAN CORPUSCULAR HEMOGLOBIN 29.3 pg (27.5-34.5); MEAN CORPUSCULAR HGB CONC 32.9 g/dL (33.2-36.2); MEAN PLATELET VOLUME 7.5 fL (7.4-10.4); MONOCYTES % (AUTO) 10 % (2-9); NEUTROPHILS % (AUTO) 75 % (42-75); PLATELET COUNT 203 x10^3/uL (130-400); RED BLOOD COUNT 4.51 x10^6/uL (4.38-5.82); RED CELL DISTRIBUTION WIDTH 14.8 % (9.4-14.8)
[2020-12-09 11:30] LABS: MD NO
[2020-12-09] MEDS ORDERED: MIDAZOLAM 1 MG/ML, 2ML ONE (11:34)
[2020-12-09] MEDS ORDERED: CEFAZOLIN 1,000 MG ONE (11:34)
[2020-12-09] MEDS ORDERED: FENTANYL PF 100 MCG/2ML ONE (11:34)
[2020-12-09] MEDS ORDERED: CEFAZOLIN PMX 1GM/50ML 50 ML ONE (11:34)
[2020-12-09 11:39] LABS: ANION GAP 4 mmol/L (5-15); CALCIUM 8.3 mg/dL (8.5-10.1); CHLORIDE 107 mmol/L (98-107); CREATININE 1.25 mg/dL (0.7-1.3); INTERNATIONAL NORMALIZED RATIO 1.05 (0.93-1.1); PROTHROMBIN TIME 11.2 Seconds (9.6-11.5)
[2020-12-09] MEDS ORDERED: LIDOCAINE 2%, 20ML ONE (11:57)
[2020-12-09] MEDS ORDERED: HOLD MEDICATION MC PRN (12:30)
[2020-12-09] MEDS ORDERED: HYDROcodone/APAP 5/325 TABLET PO PRN (12:30)
[2020-12-09] MEDS ORDERED: SODIUM CHLORIDE FLUSH 10ML SYR IVF SCH (21:00)
== END 2020-12-09 14:36 | disposition home or self-care (01) ==
LOC: CACL 10:11
PROVIDERS: ATTEND Internal Medicine Cardiovascular Disease
DX: Z45.010 Encounter for checking and testing of cardiac pacemaker pulse generator [battery] (principal); I48.19 Other persistent atrial fibrillation; I35.0 Nonrheumatic aortic (valve) stenosis; I10 Essential (primary) hypertension; J44.9 Chronic obstructive pulmonary disease, unspecified; Z79.01 Long term (current) use of anticoagulants; Z79.82 Long term (current) use of aspirin; Z79.891 Long term (current) use of opiate analgesic; Z79.899 Other long term (current) drug therapy; Z87.891 Personal history of nicotine dependence; Z99.81 Dependence on supplemental oxygen
CPT/HCPCS: 33228; 36415; 71046; 80048; 85025; 85610; 99156; C1785; J0690; J2250; J3010

== ENCOUNTER → 2021-01-21 | Outpatient (CLI) | payer MEDICARE ==
[~2021-01-21] MED LIST changes: +AMLO-210 PO; +ASCO500T8 PO; +CHOL10003 PO; +FLUT200B INH; +FLUT9.9S INH; +UMEC1DIS INH
== END | disposition home or self-care (01) ==
LOC: CVU 12:11
PROVIDERS: ATTEND Internal Medicine Cardiovascular Disease
DX: I08.0 Rheumatic disorders of both mitral and aortic valves (principal); I65.23 Occlusion and stenosis of bilateral carotid arteries; J44.9 Chronic obstructive pulmonary disease, unspecified; R09.89 Other specified symptoms and signs involving the circulatory and respiratory systems
CPT/HCPCS: 93306; 93880